=== PATIENT | male | born 1955 | race Caucasian/White ===

== ENCOUNTER 2020-06-12 06:11 | Inpatient (IN) | payer BC ==
[2020-06-12 06:53] LABS: #Eosinphils 0.1 thou/uL (0.0-0.7); #Lymphocytes 0.4 thou/uL (1.20-3.40); #Monocytes 0.8 thou/uL (0.11-0.59); #Neutrophils 8.6 thou/uL (1.40-6.50); %Basophils 0.1 % (0.0-1.0); %Eosinophils 0.5 % (0.0-10.0); %Monocytes 8.2 % (0.0-10.0); %Neutrophils 87.2 % (42.0-75.0); Hemoglobin 12.5 g/dL (14.0-18.0); Mean Platelet Volume 6.7 fL (7.4-10.4); Platelet Count 195 thou/uL (130-400); RBC Distribution Width 14.3 % (11.5-14.5); Red Blood Cell (RBC) Count 3.58 mill/uL (4.70-6.10); White Blood Cell (WBC) Count 9.9 thou/uL (4.8-10.8)
[2020-06-12 07:16] LABS: ALT (SGPT) 29 U/L (8-55); AST (SGOT) 16 U/L (5-34); Albumin 3.5 g/dL (3.4-4.8); Alkaline Phosphatase 62 U/L (40-110); Anion Gap 16 mmol/L (10-20); BUN (Urea Nitrogen) 21 mg/dL (8.4-25.7); Calc. Creatinine Clearance 0 mL/min (70-130); Calcium 8.7 mg/dL (7.8-10.44); Carbon Dioxide 21 mmol/L (23-31); Chloride 105 mmol/L (98-107); Estimated GFR-MDRD 84; Glucose 172 mg/dL (80-115); Potassium 3.6 mmol/L (3.5-5.1); Protein, Total 5.5 g/dL (5.8-8.1); Sodium 138 mmol/L (136-145)
--- NOTE | 2020-06-12 08:04 | CT ---
Head CT without contrast: 06/12/2020 COMPARISON: None HISTORY: Altered mental status, confusion TECHNIQUE: Axial CT imaging at 5 mm intervals from vertex through skull base without contrast FINDINGS: There is evidence of prior posterior left craniotomy. There is enlargement of the left late ral ventricle with encephalomalacia in the posterior left parietal region as well as hypodensity in the left basal ganglia and left cerebral peduncle suggesting prior insult/infarction with left-sided well-aerated degeneration. There is subtle hypodensity within the posterior aspect of the right cerebellar hemisphere suggesting age indeterminant ischemia. No intracranial hemorrhage, midline shif t, or mass effect. Imaged paranasal sinuses and mastoid air cells are well-aerated. No displaced calvarial fracture. IMPRESSION: Nonacute findings as described above. No intracranial hemorrhage. If there is clinical co ncern for acute infarction, follow-up brain MRI is suggested.
--- NOTE | 2020-06-12 08:10 | CT ---
CT of the abdomen and pelvis: 06/12/2020 COMPARISON: None HISTORY: Sepsis activation, altered mental status, hemoptysis TECHNIQUE: Axial CT imaging at 5 mm intervals from lung bases through pubic symphysis with IV contras t. Coronal and sagittal reformatted imaging obtained. FINDINGS: Increased linear density noted in the lung bases suggesting scar and/or volume loss, right greater than left. No free intraperitoneal air or fluid is seen. Liver, gallbladder, spleen, pancreas, and adrenal glands are unremarkable. There is an IVC filter pre sent. The right kidney is unremarkable. There is hydronephrosis and hydroureter on the left secondary to a distal obstructing stone within the left ureter at the left ureterovesicular junction measuring approximately 4 mm. Mild nonspecific straightening of the presacral fat is noted which may signify inflammatory change. N o discrete rectal wall thickening. Small volume stool is noted within the rectum. Evaluation of the bowel is limited without oral contrast media and demonstrates no evidence for focal bowel inflammator y change or bowel obstruction. The appendix appears unremarkable. There is atherosclerotic calcification of the infrarenal abdominal aorta. No abdominal or pelvic lymp hadenopathy is seen. Review of the osseous structures demonstrates numerous age indeterminant spinal fractures which inclu jose luis the superior endplates of the T9, T11, T12, L1, L2, L3, L4 4, and L5 vertebral bodies. There are vacuum discs at the T12-L1, L1-2, L3-4, L4-5, and L5-S1 levels. The bones are demineralized, limi ting detailed assessment for fracture. IMPRESSION: Obstructive uropathy on the left secondary to a 4 mm distal obstructing stone within the left ureter at the left ureterovesicular junction. Numerous age indeterminant mild endplate fractures of the imaged spine.
[2020-06-12 08:24] LABS: Bacteria/HPF 3+ HPF (None Seen); Bilirubin Negative (Negative); Blood, Urine 2+ (Negative); Clarity Turbid (Clear); Glucose, Urine (Dipstick) Normal (Negative); Ketone, Urine Negative (Negative); Leukocyte 500 Leu/uL (Negative); Nitrite 2+ (Negative); Protein, Urine (Dipstick) 30 mg/dL (Neg-Trace); RBC/HPF 21-50 HPF (0-3); Specific Gravity, Urine 1.016 (1.002-1.036); Squamous Epithelial None Seen HPF (0-3); Urobilinogen Normal mg/dL (Less than 2); WBC/HPF Greater than 50 HPF (0-3); pH, Urine 5.5 (5.0-9.0)
[2020-06-12] MEDS ORDERED: Cefepime 2 GM VIAL ONE (08:44)
[2020-06-12] MEDS ORDERED: Metoclopramide HCl 10 MG/2 ML VIAL ONE (08:44)
[2020-06-12] MEDS ORDERED: Acetaminophen 325 MG TAB PO PRN (09:16)
[2020-06-12] MEDS ORDERED: Bisacodyl 10 MG SUPP PR SCH (09:16)
[2020-06-12] MEDS ORDERED: predniSONE 20 MG TAB PO SCH (09:16)
[2020-06-12] MEDS ORDERED: Guaifenesin DM 100-10/5 ML UDCUP PO PRN (09:16)
[2020-06-12] MEDS ORDERED: Ondansetron PF 4 MG/2 ML Vial IVP PRN (09:16)
[2020-06-12] MEDS ORDERED: Iopamidol-370 76% 500 ML 1 ML ONE (09:20)
[2020-06-12 09:42] LABS: Lactic Acid 2.5 mmol/L (0.5-2.2)
--- NOTE | 2020-06-12 10:01 | RAD ---
PORTABLE CHEST 1 VIEW: Date: 06/12/2020 Time: 0627 hours HISTORY: Difficulty breathing, altered mental status. FINDINGS/IMPRESSION: The heart size is normal. No lobar consolidation, pneumothoraces, or large effusions are seen. There is suggestion of a small right pleural effusion with adjacent mild atelectatic changes. POS: MZA
--- NOTE | 2020-06-12 10:02 | HP ---
REASON FOR ADMISSION: Sepsis, urinary tract infection, left 4 mm obstructing ureteral stone, acute encephalopathy, possible seizure. HISTORY OF PRESENTING ILLNESS: Please note majority of this history is obtained by talking to the patient's at bedside and ER physician, Dr. Greer, as the patient is aphasic. The patient apparently was rolling [id number] yesterday. He appeared very uncomfortable. Initially the thought, it was constipation since his last bowel movement was Sunday. This morning around 5:00, the patient developed temperature of 100 degrees. He had loud, raspy breathing, and he also had blood around the lips. The thought he bit his lips, but his shortness of breath got worse and he was not conscious. He was not making any eye contact. summoned EMS and the patient was brought here. She says now he is awake, says a few words, and is kind of 90% better at present now. No exposure to COVID as such per . The patient has had history of absent seizure diagnosed in April,. 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 Cook. The patient has had prior history of nephrolithiasis in 1992 and passed stone in [facility]. He has not seen urologist. PAST MEDICAL AND SURGICAL HISTORY: History of large left MCA stroke with prior surgery for the same and right hemiplegia with aphasia, hypertension, vasectomy, cyst removal, right lower extremity DVT with initial placement of a temporary filter in July, which has not been removed, and since then, he has been on Eliquis 5 mg twice daily. The patient was on cyclophosphamide for vasculitis and was closely monitored by Dr. Cook. He has been off this from May 15. The patient is coming down on his prednisone from 100 mg to current dose of 20 mg daily. The plan is to place him on methotrexate with a followup appointment being scheduled on the 16 of June. Multiple compression fractures in the spine, B12 deficiency, prior history of nephrolithiasis in 1992, craniotomy for massive CVA in June of 2019, GERD, osteoporosis, IVC filter placed in July of 2019. CURRENT MEDICATIONS: 1. Gabapentin 300 mg daily. 2. Lisinopril 5 mg daily. 3. Prednisone 20 mg daily. 4. Protonix 30 mg daily. 5. Eliquis 5 mg twice daily for right lower extremity DVT. 6. Vitamin D3 of 5000 units p.o. daily. 7. B12 of 1000 mcg daily. 8. Calcium citrate daily. 9. Vitamin C with zinc daily. ALLERGIES: NO KNOWN DRUG ALLERGIES. PERSONAL HISTORY: Does not abuse alcohol or drugs. No history of smoking. The patient is wheelchair bound and does assist with transfers. No history of dysphagia per . FAMILY HISTORY: Mother of massive CVA in her late 60s. Father of throat cancer in his 70s. He was a smoker as well. CODE STATUS: Full. Power of regulatory attorney is his . REVIEW OF SYSTEMS: Cannot be accurately obtained as the patient is aphasic and is confused at present. PHYSICAL EXAMINATION: GENERAL: The patient is a 65-year-old male, who is currently not in any acute distress. VITAL SIGNS: Blood pressure 104/76, pulse 126 per minute, respiratory rate 20 per minute, temperature 99.1 degrees here and was 100 degrees when EMS arrived to see him, saturating 94% on room air. NECK: Supple. No elevated JVD. HEENT: Eyes; extraocular muscles are intact. Pupils reacting to light. Oral cavity, mucous membranes are dry. No exudates or congestion. CARDIOVASCULAR: S1 and S2 heard, regular rhythm. RESPIRATORY: Air entry 1+ bilateral. Scattered rhonchi plus no rales or wheezes. ABDOMEN: Soft. Bowel sounds heard. No tenderness, rigidity, or guarding. EXTREMITIES: Right lower extremity is twice as big as left lower extremity. mentions that it was even bigger than this. Peripheral pulses are 1+ bilateral. No ischemic ulcers or gangrene. CENTRAL NERVOUS SYSTEM: The patient has right hemiplegia with aphasia. No new focal deficits noted. PSYCHIATRIC: Cannot be accurately assessed as the patient is aphasic and is confused. IMAGING STUDIES: CT abdomen and pelvis with contrast done, shows obstructive uropathy on the left secondary to 4 mm distal obstructing stone within the left ureter at the left ureteral vesicular junction. Numerous age indeterminate endplate fractures of T9, T11, T12, L1, L2, L3, L4, and L5 vertebral bodies. CT brain shows prior left craniotomy. No acute findings seen. Chest x-ray, official report is pending. LABORATORY DATA: White count of 9, hemoglobin and hematocrit 12 and 36, platelet count 195, MCV 103 with 87% neutrophils. Serum bicarb 21, BUN 21, creatinine 0.9, serum glucose 172. Lactic acid 3.3. Liver enzymes within normal limits. Albumin 3.5. UA shows 2+ nitrite, 500 leukocyte esterase, greater than 50 wbc's, amorphous crystals. Urine bacteria 3+. CLINICAL IMPRESSION AND PLAN: The patient will be admitted to medical floor for sepsis, urinary tract infection, likely obstructive uropathy on the left with a 4 mm stone likely might pass. We will strain all urine. He also has moderate dehydration. Bhatia cultures have been obtained in the ER. We will place him on ceftriaxone and vancomycin. He will be on normal saline at 100 mL per hour. We will continue his prednisone, which he has been chronically taking for vasculitis leading up to massive CVA and follows closely with Dr. Cook on the outside. We will continue his Synthroid, gabapentin, and morphine p.r.n. for pain. We will also obtain an EEG in view of his confusion episode with blood around his lips and prior history of massive CVA. We will consult Dr. Velez for Urology and Dr. Ortega for Neurology. We will keep him n.p.o. The patient's last dose of Eliquis was yesterday evening. Eliquis will be held for possible cystoscopy and procedures if needed. We will continue to closely monitor him on medical floor. Job ID: [id number]
[2020-06-12] MEDS ORDERED: predniSONE 20 MG TAB ONE (11:33)
[2020-06-12] MEDS ORDERED: Vancomycin 1 GM/200 ML BAG ONE (11:33)
[2020-06-12] MEDS ORDERED: cefTRIAXone\\ROCEPHIN 2 GM VIAL ONE (11:33)
[2020-06-12 11:39] LABS: INR-International Normal Ratio 1.1; PTT 35.7 sec (22.9-36.1); Prothrombin Time 14.4 sec (12.0-14.7)
[2020-06-12 12:21] LABS: SARS-CoV-2 NAA Rapid Test Not Detected (NotDetected)
[2020-06-12] MEDS: Sodium Chloride 0.9% 1,000 ML IV SCH ×2 (12:34→19:53)
[2020-06-12] MEDS: cefTRIAXone\\ROCEPHIN 2 GM in Sodium Chloride 0.9% 100 ML IVPB SCH (12:35)
[2020-06-12] MEDS ORDERED: Lidocaine 1% PF 5 ML VIAL ONE (12:40)
[2020-06-12] MEDS ORDERED: PROPOFOL 200 MG/20 ML VIAL ONE (12:40)
[2020-06-12] MEDS: Vancomycin 1 GM in Premix Bag 1 BAG IVPB SCH ×2 (12:48→23:58)
--- NOTE | 2020-06-12 13:27 | CON ---
NEUROLOGY CONSULTATION DATE OF CONSULTATION: 06/12/2020 REASON FOR CONSULTATION: Altered mental status/possible seizure. HISTORY OF PRESENT ILLNESS: Mr. 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 Per the patient's who is at bedside, he has been complaining of severe abdominal pain on and off since the last few days and she gave him a few doses of tramadol this morning. He had difficulty breathing and blood around his lips. There was a concern about seizures. He was also found to have a temperature of 100 degree and shortness of breath. She decided to call 911 and bring him to the hospital for further evaluation. In the emergency room, he was found to have left 4 mm obstructing ureteral stone and UTI with sepsis and he was admitted for further evaluation. REVIEW OF SYSTEMS: Unobtainable due to the patient's expressive aphasia. PAST MEDICAL HISTORY: History of large left MCA stroke with residual right hemiplegia and aphasia, hypertension. GERD, osteoporosis, intravenous filter placed in July of 2019. 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 Gabapentin 300 mg daily. 2. Lisinopril 5 mg daily. 3. Prednisone 20 mg daily. 4. Protonix 30 mg daily. 5. Eliquis 5 mg twice daily for right lower extremity DVT. 6. Vitamin D3 5000 units p.o. daily. 7. Vitamin B12 1000 mg daily. 8. Calcium citrate daily. 9. Vitamin C with zinc daily. ALLERGIES: NO KNOWN DRUG ALLERGIES. SOCIAL HISTORY: The patient is wheelchair bound and does need assistance for transfers. No history of dysphagia per . He denies smoking and illegal drug use. FAMILY HISTORY: Significant for CVA and throat cancer. PHYSICAL EXAMINATION: GENERAL: Alert, awake male, in mild distress. VITAL SIGNS: Blood pressure 104/76, pulse 126, respiratory rate 20. CVS: Regular rate and rhythm. CHEST: Clear. ABDOMEN: Soft. NECK: Supple. NEUROLOGICAL: Mental status, the patient is alert, awake, and per is 85% back to baseline. He does have expressive aphasia. Motor muscle tone is increased in the right and he has right hemiplegia. Sensory decreased on the right. Cerebellar, unable to perform secondary to weakness on the right. Gait deferred due to patient's safety reason. DATA REVIEWED: CT of the abdomen and pelvis with contrast showed obstructive uropathy on the left secondary to 4 mm distal obstructive stone with the left ureter and left ureterovesical junction. CT of the brain showed prior left craniotomy. Chest x-ray is unremarkable. Urinalysis is positive for urinary tract infection. ASSESSMENT AND PLAN: Mr. Dmitriy Crouch is a 65-year-old male, who has been admitted because of sepsis due to ureteral stone and also dehydration and an episode of altered mental status. Altered mental status seems to be multifactorial secondary to metabolic etiology and also secondary to pain medications since that he has received multiple doses of tramadol for pain. Tramadol does decrease seizure threshold. The patient does have underlying history of seizure disorder and medicine has been tapered off by their primary physician because of does not want to affect the quality of life. Most likely a provoked seizure in the setting of infection and excruciating pain due to stone. Observe seizure precautions. Ativan 2 mg IV for seizure greater than 2 minutes. Consider increasing gabapentin to 200 mg p.o. b.i.d., the anticonvulsant dose to provide adequate seizure prophylaxis during this acute issues. Continue medical management per primary team and Urology. Consider MRI of the brain to rule out acute process. We will continue to follow. EEG on sunday to rule out cortical irritability. Neuro checks every 4 hours. DVT prophylaxis with SCD. We will continue to follow. Plan discussed with the patient, patient's at bedside and also with the primary attending Dr. Louise. Thank you for the consult. Job ID: [id number] [facility]
[2020-06-12 13:56] VITALS: BMI 29.6
--- NOTE | 2020-06-12 16:41 | CON ---
DATE OF CONSULTATION: 06/12/2020 REASON FOR CONSULTATION: Left ureteral stone, urinary tract infection. HISTORY OF PRESENT ILLNESS: Mr. Crouch is a 65-year-old male, who is seen in consultation for the above. He has a complicated past history of right hemiplegia with aphasia secondary to a large left MCA stroke. The patient's provides the history as the patient is unable to do so. Over the past couple of days, the patient has not been acting himself. He has had some degree of altered mental status. Initially, she felt that this was secondary to constipation. This morning, the patient had a temperature of just over 100 degrees Fahrenheit and had a loud labored, raspy breathing. The evaluated the patient at that time and she was not able to wake him. He was not making an eye contact. At that time, she called EMS and the patient was brought to the emergency department. The patient underwent a CT of the abdomen and pelvis in the emergency department, which demonstrated a left-sided 4 mm distal left ureteral stone with left hydroureteronephrosis. The patient had a urinalysis consistent with UTI with positive leukocyte esterase, positive bacteria and positive nitrite. The patient was having low-grade fever, but evidently at one point per EMS had a fever of up to 103. He has been tachycardic. Urology was consulted for further evaluation. Since the patient was admitted, started on ceftriaxone and vancomycin and given fluids. He has improved somewhat. He continues to have fever, but his mental status has improved. No other complaints. REVIEW OF SYSTEMS: Unable to obtain secondary to patient's condition. PAST MEDICAL HISTORY: History of large left MCA stroke with right hemiplegia and aphasia, hypertension, right lower extremity DVT with placement of a temporary IVC filter in July, which has not been removed. Currently on Eliquis. 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 PAST SURGICAL HISTORY: Surgery for a large MCA stroke, IVC filter placement, vasectomy, cyst removal. CURRENT MEDICATIONS: 1. Gabapentin. 2. Lisinopril. 3. Prednisone. 4. Protonix. 5. Eliquis. 6. Vitamin D3. 7. B12. 8. Cyclophosphamide. 9. Calcium citrate. 10. Vitamin C. ALLERGIES: NO KNOWN DRUG ALLERGIES. FAMILY HISTORY: Noncontributory. SOCIAL HISTORY: No alcohol or tobacco. The patient is wheelchair-bound and does assist with some transfers. PHYSICAL EXAMINATION: VITAL SIGNS: Temperature is 100.8, pulse 119, respirations 18, ox saturation 96% on room air, blood pressure 113/64. GENERAL: He is awake and alert, in no acute distress. HEENT: Normocephalic and atraumatic. NECK: Supple. No masses or lymphadenopathy. CARDIOVASCULAR: Tachycardic but regular. PULMONARY: Breathing unlabored. ABDOMEN: Soft, nontender/nondistended. No masses or organomegaly. No suprapubic tenderness to palpation. No CVA tenderness. EXTREMITIES: Warm, well perfused. No edema. NEUROLOGIC: Right hemiplegia. LABORATORY DATA: White blood cell count 9.9, hemoglobin 12.5, hematocrit 36.8, platelets 195. Sodium 138, potassium 3.6, chloride 105, bicarb 21, BUN 21, and creatinine 0.91, lactate 3.3. Recheck after fluid at 3.5. Urinalysis 2+ blood, 2+ nitrite, 500 leukocyte esterase, 21 to 50 red blood cells per high-power field, greater than 50 white blood cells per high-power field, 3+ bacteria. RADIOLOGY DATA: CT of the abdomen and pelvis performed on 06/12/2020 demonstrates a 4 mm distal ureteral stone with left hydroureteronephrosis. ASSESSMENT: A 65-year-old male with multiple chronic medical problems, now with urinary tract infection, sepsis secondary to urinary tract infection, left ureteral stone, left hydroureteronephrosis. PLAN: I reviewed the natural history and clinical implications of ureterolithiasis in the setting of urinary tract infection with the patient and his in detail. I explained that given the fact that he is febrile, tachycardic and has an obstructing stone in the setting of UTI. Would recommend urgent decompression of his left renal collecting system. I discussed options for this after indications/risks/benefits/alternatives/possible outcomes were discussed with the patient in detail. The patient and his in detail, they elect to proceed with left ureteral stent placement, possible left ureteroscopy with stone extraction given the very distal location of the stone. I explained that if we were unable to remove the stone, the patient may require staged definitive management of the stone in the future as a second procedure. He will need to remain on a course of culture specific antibiotics for approximately two weeks. The patient is n.p.o., a rapid COVID test has been performed and is negative. This will be performed later today. Job ID: [id number]
[2020-06-12] MEDS ORDERED: Fentanyl 100 MCG/2 ML VIAL ONE (17:00)
[2020-06-12] MEDS ORDERED: Iothalamate Meglumine 60% 50 ML VIAL FS ONE (17:33)
--- NOTE | 2020-06-12 18:52 | OP ---
DATE OF PROCEDURE: 06/12/2020 RELATIONSHIP ADVISOR: None. PREPROCEDURE DIAGNOSES: 1. Left ureteral calculus. 2. Left hydroureteronephrosis. 3. Sepsis secondary to urinary tract infection. POSTPROCEDURE DIAGNOSES: 1. Left ureteral calculus. 2. Left hydroureteronephrosis. 3. Sepsis secondary to urinary tract infection. PROCEDURES PERFORMED: 1. Left ureteroscopy with basket extraction of left ureteral calculus. 2. Left ureteral stent placement, 6-English x 26 cm. ANESTHESIA: LMA anesthesia. COMPLICATIONS: None. FLUID: See Anesthesia record. BLOOD LOSS: Minimal. SPECIMENS: Left ureteral calculus. POSTPROCEDURE STATUS: Satisfactory. INDICATIONS FOR PROCEDURE: Mr. Crouch is a 65-year-old male who presented with sepsis secondary to urinary tract infection and a 4 mm distal left ureteral stone with left hydroureteronephrosis. After indications/risks/benefits/alternatives/possible outcomes were discussed with the patient and his in detail, they elected to proceed with left ureteral stent placement, possible left ureteroscopy with basket extraction, and all indicated procedures. DESCRIPTION OF PROCEDURE: The patient was taken to the operating room, and after successful induction of general LMA anesthesia, the patient was placed in dorsal lithotomy position. His genitalia were prepped and draped in usual sterile fashion. A time-out was performed following which, a 22-English rigid cystoscope inserted into the patient's urethra and advanced into the bladder. Cystoscopy was performed and was unremarkable. There was bilobar enlargement of the prostate. Left ureteral orifice was identified. It was cannulated with a 0.035 inch zip wire which was advanced up to the level of the left renal pelvis under fluoroscopic guidance. The cystoscope was removed. The semi-rigid ureteroscope was advanced into the bladder using a PTFE wire to guide into the ureteral orifice. We advanced it into the left ureteral orifice and immediately encountered the stone in the distal ureter. We used minimal irrigation and no significant pressurized irrigation. In doing this, we used a ZeroTip Nitinol basket to extract the stone. It broke up into two pieces as we were doing so. Both of these pieces were successfully removed and sent for stone analysis. We put approximately 3 mL of a 50:50 mix of Isovue contrast and saline in the left renal pelvis through the scope and withdrew the ureteroscope. There was no damage to the ureter. We elected to leave a ureteral stent given the fact that he had hydronephrosis and urinary tract infection. Over the wire, we backloaded the cystoscope. We then placed a 6-English x 26 cm double-J ureteral stent, and upon wire removal, a good curl was achieved proximally within the left renal pelvis and distally within the bladder. The patient's bladder was drained. He tolerated the procedure well, was awoken from anesthesia, and transferred to the PACU in satisfactory condition. Job ID: [id number]
[2020-06-12] MEDS: Famotidine 20 MG TAB PO SCH (19:52)
[2020-06-12] MEDS: Senokot S 8.6-50 MG TAB PO SCH (19:52)
[2020-06-12] MEDS ORDERED: Vancomycin HCl 1 GM in Sodium Chloride 0.9% 250 ML 300 ML IVPB SCH (21:00)
[2020-06-12] MEDS: Morphine 2 MG/ML VIAL SLOW IVP PRN (21:09)
[2020-06-13] MEDS: Morphine 2 MG/ML VIAL SLOW IVP PRN (03:07)
[2020-06-13 07:53] LABS: Hemoglobin 11.7 g/dL (14.0-18.0); Mean Corpuscular HGB CONC 34.2 g/dL (32.0-36.0); Mean Platelet Volume 6.6 fL (7.4-10.4); Platelet Count 154 thou/uL (130-400); RBC Distribution Width 14.2 % (11.5-14.5); Red Blood Cell (RBC) Count 3.34 mill/uL (4.70-6.10); White Blood Cell (WBC) Count 6.9 thou/uL (4.8-10.8)
[2020-06-13] MEDS ORDERED: predniSONE 20 MG TAB PO SCH (08:00)
[2020-06-13 08:05] LABS: Anion Gap 14 mmol/L (10-20); BUN (Urea Nitrogen) 13 mg/dL (8.4-25.7); Calc. Creatinine Clearance 139 mL/min (70-130); Calcium 8.6 mg/dL (7.8-10.44); Carbon Dioxide 22 mmol/L (23-31); Chloride 106 mmol/L (98-107); Estimated GFR-MDRD Greater than 90; Glucose 106 mg/dL (80-115); Potassium 3.5 mmol/L (3.5-5.1); Sodium 138 mmol/L (136-145)
[2020-06-13] MEDS: Gabapentin 300 MG CAP PO SCH (08:20)
[2020-06-13] MEDS: Famotidine 20 MG TAB PO SCH ×2 (08:21→21:13)
[2020-06-13] MEDS: Senokot S 8.6-50 MG TAB PO SCH ×2 (08:21→21:13)
[2020-06-13] MEDS: Levothyroxine Sodium 75 MCG TAB PO SCH (08:21)
[2020-06-13 08:30] LABS: MDiff Complete? YES; Monocytes 10 % (0-10); Neutrophil 90 % (42-75); Platelet Morphology Comment Appears Adequate
[2020-06-13] MEDS: Sodium Chloride 0.9% 1,000 ML IV SCH ×2 (08:30→18:33)
[2020-06-13] MEDS: cefTRIAXone\\ROCEPHIN 2 GM in Sodium Chloride 0.9% 100 ML IVPB SCH (10:18)
--- NOTE | 2020-06-13 10:56 | MRI ---
MRI BRAIN WITHOUT CONTRAST: Date: 06/13/2020 HISTORY: Seizure. FINDINGS: Correlation is made with CT scan from previous day and comparison made with MRI of 05/03/2020. There are changes of cortical atrophy and chronic small vessel ischemic disease. There are postop ena nges of posterior craniotomy, encephalomalacia in the posterior left parietal region, and stable enla rgement of the left lateral ventricle. Old infarctions in the left basal ganglia and left cerebral pe duncle are again seen. Old infarctions in the cerebellar hemisphere are again noted. There are new fo ci of restricted diffusion in the left basal ganglia. No midline shift or abnormal extra-axial fluid collections are seen. IMPRESSION: Small acute lacunar infarctions in the left basal ganglia. POS: ALCIRAA
[2020-06-13] MEDS: Vancomycin 1 GM in Premix Bag 1 BAG IVPB SCH (11:16)
--- NOTE | 2020-06-13 12:35 | ULT ---
EXAM: Carotid ultrasound HISTORY: Stroke/TIA COMPARISON: None TECHNIQUE: Multiplanar grayscale and color Doppler images were obtained in a carotid ultrasound. Spec tral analysis of the Doppler waveforms were performed. FINDINGS: There is limited visualization of the right carotid artery. No significant plaque is visualized in either internal carotid artery. No significant plaque is seen in either common carotid artery. The Doppler waveforms are normal in the visualized vessels. Peak systolic velocity in the right internal carotid artery 56 cm/s. Peak systolic velocity in the right common carotid artery 41 cm/s. The right ICA/CCA ratio is 1.4. Peak systolic velocity in the left internal carotid artery 62 cm/s. Peak systolic velocity in the left common carotid artery 51 cm/s. The left ICA/CCA ratio is 1.2. The left vertebral artery demonstrates antegrade flow without focal stenosis. The right vertebral art brian was not visualized. IMPRESSION: No evidence of hemodynamically significant stenosis.
--- NOTE | 2020-06-13 13:43 | PDOC.NEUPN ---
- Subjective Encounter Date: 06/13/20 Subjective: Patient is awake today and more responsive. He does have recent expressive aphasia from the prior stroke. MRI the brain reviewed which was positive for acute lacunar infarction in the left basal ganglia. No new deficits seen on exam. Patient feels much better in terms of pain after the cystoscopy for ureteral stone. - Objective Vital Signs & Weight: Vital Signs (12 hours) Temp Pulse Resp BP Pulse Ox 06/13/20 12:06 99.0 F 101 H 18 146/86 H 97 06/13/20 08:18 99.0 F 109 H 18 139/93 H 96 06/13/20 03:56 98.1 F 106 H 18 131/75 95 Weight Weight 206 lb 9.6 oz I&O: 06/12/20 06/13/20 06/14/20 06:59 06:59 06:59 Intake Total 2039 Balance 2039 Result Diagrams: 06/13/20 07:19 06/13/20 07:19 Radiology Reviewed by me: Yes EKG Reviewed by me: Yes ROS - Review of Systems ROS unobtainable: due to mental status (Expressive aphasia) - Medication Medications: Active Medications Generic Name Dose Route Start Last Admin Trade Name Freq PRN Reason Stop Dose Admin Acetaminophen 650 mg 06/12/20 09:16 06/13/20 00:18 Acetaminophen 325 Mg Tab PO 650 mg Q4H PRN Administration Headache/Fever/Mild Pain (1-3) Famotidine 20 mg 06/12/20 21:00 06/13/20 08:21 Famotidine 20 Mg Tab PO 20 mg BID ALICE Administration Gabapentin 300 mg 06/13/20 09:00 06/13/20 08:20 Gabapentin 300 Mg Cap PO 300 mg DAILY ALICE Administration Sodium Chloride 1,000 mls @ 100 mls/hr 06/12/20 09:16 06/13/20 08:30 Normal Saline 0.9% IV Not Given .Q10H ALICE Ceftriaxone Sodium 2 gm/ 100 mls @ 200 mls/hr 06/12/20 10:00 06/13/20 10:18 Sodium Chloride IVPB 100 mls Q24HR ALICE Administration Vancomycin HCl 1 gm/ Device 200 mls @ 200 mls/hr 06/12/20 11:00 06/13/20 11:16 IVPB 200 mls Q12H ALICE Administration Levothyroxine Sodium 75 mcg 06/13/20 09:00 06/13/20 08:21 Levothyroxine Sodium 75 Mcg Tab PO 75 mcg DAILY ALICE Administration Morphine Sulfate 2 mg 06/12/20 09:16 06/13/20 03:07 Morphine 2 Mg/Ml Vial SLOW IVP 2 mg Q4H PRN Administration Pain Prednisone 20 mg 06/13/20 08:00 06/13/20 08:20 Prednisone 20 Mg Tab PO 20 mg QAM-WM ALICE Administration Senna/Docusate Sodium 2 tab 06/12/20 21:00 06/13/20 08:21 Senokot S 8.6-50 Mg Tab PO 2 tab BID ALICE Administration Sodium Chloride 10 ml 06/12/20 21:00 06/13/20 09:23 Flush - Normal Saline 10 Ml Syringe IVF Not Given Q12HR ALCIE - Exam General Appearance: awake alert Eye: PERRL ENT: normocephalic atraumatic Neck: supple Respiratory: CTAB Cardiovascular: RRR Gastrointestinal: soft Extremities: no cyanosis Skin: normal turgor Neurological: no new deficit, facial droop, hemiplegia, speech deficit Neurological - other findings: Right sided deficits Musculoskeletal: no muscle wasting Musculoskeletal - other findings: Muscle tone increased on the right PSYCH: not oriented (Aphasic) Results - Labs Result Diagrams: 06/13/20 07:19 06/13/20 07:19 Lab results: WBC 6.9 thou/uL (4.8-10.8) 06/13/20 07:19 Hgb 11.7 g/dL (14.0-18.0) L 06/13/20 07:19 Hct 34.1 % (42.0-52.0) L 06/13/20 07:19 MCV 102.0 fL (78.0-98.0) H 06/13/20 07:19 Plt Count 154 thou/uL (130-400) 06/13/20 07:19 Neutrophils % 87.2 % (42.0-75.0) H 06/12/20 06:15 Sodium 138 mmol/L (136-145) 06/13/20 07:19 Potassium 3.5 mmol/L (3.5-5.1) 06/13/20 07:19 Chloride 106 mmol/L (98-107) 06/13/20 07:19 Carbon Dioxide 22 mmol/L (23-31) L 06/13/20 07:19 BUN 13 mg/dL (8.4-25.7) 06/13/20 07:19 Creatinine 0.71 mg/dL (0.7-1.3) 06/13/20 07:19 Glucose 106 mg/dL (80-115) 06/13/20 07:19 Lactic Acid 2.5 mmol/L (0.5-2.2) H 06/12/20 09:18 Calcium 8.6 mg/dL (7.8-10.44) 06/13/20 07:19 Total Bilirubin 1.0 mg/dL (0.2-1.2) 06/12/20 06:15 AST 16 U/L (5-34) 06/12/20 06:15 ALT 29 U/L (8-55) 06/12/20 06:15 Alkaline Phosphatase 62 U/L (40-110) 06/12/20 06:15 Serum Total Protein 5.5 g/dL (5.8-8.1) L 06/12/20 06:15 Albumin 3.5 g/dL (3.4-4.8) 06/12/20 06:15 Urine Ketones Negative mg/dL (Negative) 06/12/20 06:56 Urine Blood 2+ (Negative) A 06/12/20 06:56 Urine Nitrite 2+ (Negative) A 06/12/20 06:56 Ur Leukocyte Esterase 500 Brooks/uL (Negative) A 06/12/20 06:56 Urine RBC 21-50 HPF (0-3) A 06/12/20 06:56 Urine WBC Greater than 50 HPF (0-3) A 06/12/20 06:56 Ur Squamous Epith Cells None Seen HPF (0-3) 06/12/20 06:56 Urine Bacteria 3+ HPF (None Seen) A 06/12/20 06:56 - Radiology Interpretation MRI - head Additional Comment: MRI of the brain reviewed which was consistent with acute infarction in the basal ganglia on the left PN A/P (1) Acute CVA (cerebrovascular accident) Code(s): I63.9 - CEREBRAL INFARCTION, UNSPECIFIED Status: Acute (2) AMS (altered mental status) Code(s): R41.82 - ALTERED MENTAL STATUS, UNSPECIFIED Status: Acute (3) Seizure Code(s): R56.9 - UNSPECIFIED CONVULSIONS Status: Acute (4) Ureteral stone Code(s): N20.1 - CALCULUS OF URETER Status: Acute (5) S/P cystoscopy Status: Acute - Plan Daily Plan: PT/OT, speech therapy, DVT proph w/SCDs Mr. 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 MRI of the brain reviewed which was consistent with acute lacunar infarction in the left basal ganglia. Patient more awake today and no neuro deficits are evident on exam. Transfer to stroke floor for further work-up. Carotid Dopplers, 2D echo ordered. Continue neurochecks every 4 hours. Telemetry to rule out arrhythmias. Check hemoglobin A1c, fasting lipid panel and TSH. Permissive control of blood pressure at this time. Strict control of blood glucose. Start aspirin and high intensity statin for secondary stroke prevention. Continue home medications. Restart Eliquis oral once neurology procedures are completed for ureteral stone. PT/OT/speech. EEG will be scheduled tomorrow to rule out underlying cortical irritability. Consider increasing the dose of gabapentin to 200 mg p.o. twice dailyanticonvulsant dose for seizure prophylaxis. not interested in starting a new med anticonvulsant for seizures because it affected the quality of life. Continue medical management per primary team and neurology. Plan discussed with the patient and also with the nursing staff and oncology unit and also on the stroke unit.
[2020-06-13] MEDS ORDERED: Gabapentin 300 MG CAP PO PRN (17:56)
[2020-06-13] MEDS ORDERED: traMADol HCl 50 MG TAB PO PRN (17:56)
[2020-06-13] MEDS ORDERED: Aspirin 81 mg Enteric Coated Tablet PO SCH (18:15)
--- NOTE | 2020-06-13 18:19 | PDOC.HOSPP ---
- Subjective Encounter Date: 06/13/20 Encounter Time: 18:00 Subjective: f/u for Klebsiella sepsis from UTI/ureteral stone s/p stent and stone extraction POD #1. Receiving Rocephin/Vancomycin currently. Apparently dx with small lacunar infarction of L basal ganglia as well. More alert and interactive per . - Objective Vital Signs & Weight: Vital Signs (12 hours) Temp Pulse Resp BP Pulse Ox 06/13/20 15:50 97.7 F 94 18 128/87 97 06/13/20 12:06 99.0 F 101 H 18 146/86 H 97 06/13/20 08:18 99.0 F 109 H 18 139/93 H 96 Weight Weight 206 lb 9.6 oz I&O: 06/12/20 06/13/20 06/14/20 06:59 06:59 06:59 Intake Total 2039 Balance 2039 Result Diagrams: 06/13/20 07:19 06/13/20 07:19 Additional Labs: Microbiology 06/12/20 07:15 Venous blood - Right Arm Blood Culture - Preliminary Gram Negative Stanley 06/12/20 06:56 Urine Straight Catheter Urine Culture - Preliminary Presumptive Kleb/Enterobacter 06/12/20 06:15 Venous blood - Left Arm Blood Culture - Preliminary Klebsiella pneumoniae Laboratory Tests 06/12/20 06/12/20 06/12/20 06:15 06:15 06:15 Hgb 12.5 L Neutrophils % 87.2 H Neutrophils % (Manual) Lactic Acid 3.3 H Magnesium 1.8 Procalcitonin SARS-CoV-2 Rap RNA(RT-PCR) 06/12/20 06/12/20 06/12/20 06:15 09:18 09:55 Hgb Neutrophils % Neutrophils % (Manual) Lactic Acid 2.5 H Magnesium Procalcitonin 0.77 SARS-CoV-2 Rap RNA(RT-PCR) Not Detected 06/13/20 07:19 Hgb Neutrophils % Neutrophils % (Manual) 90 H Lactic Acid Magnesium Procalcitonin SARS-CoV-2 Rap RNA(RT-PCR) Radiology Reviewed by me: Yes (MRI brain - lacunar infarct L basal ganglia) EKG Reviewed by me: Yes (Tele - SR) Hospitalist ROS - Medication Medications: Active Medications Generic Name Dose Route Start Last Admin Trade Name Freq PRN Reason Stop Dose Admin Acetaminophen 650 mg 06/12/20 09:16 06/13/20 00:18 Acetaminophen 325 Mg Tab PO 650 mg Q4H PRN Administration Headache/Fever/Mild Pain (1-3) Famotidine 20 mg 06/12/20 21:00 06/13/20 08:21 Famotidine 20 Mg Tab PO 20 mg BID ALICE Administration Gabapentin 300 mg 06/13/20 09:00 06/13/20 08:20 Gabapentin 300 Mg Cap PO 300 mg DAILY ALICE Administration Sodium Chloride 1,000 mls @ 100 mls/hr 06/12/20 09:16 06/13/20 08:30 Normal Saline 0.9% IV Not Given .Q10H ALICE Ceftriaxone Sodium 2 gm/ 100 mls @ 200 mls/hr 06/12/20 10:00 06/13/20 10:18 Sodium Chloride IVPB 100 mls Q24HR ALICE Administration Vancomycin HCl 1 gm/ Device 200 mls @ 200 mls/hr 06/12/20 11:00 06/13/20 11:16 IVPB 200 mls Q12H ALICE Administration Levothyroxine Sodium 75 mcg 06/13/20 09:00 06/13/20 08:21 Levothyroxine Sodium 75 Mcg Tab PO 75 mcg DAILY ALICE Administration Morphine Sulfate 2 mg 06/12/20 09:16 06/13/20 03:07 Morphine 2 Mg/Ml Vial SLOW IVP 2 mg Q4H PRN Administration Pain Senna/Docusate Sodium 2 tab 06/12/20 21:00 06/13/20 08:21 Senokot S 8.6-50 Mg Tab PO 2 tab BID ALICE Administration Sodium Chloride 10 ml 06/12/20 21:00 06/13/20 09:23 Flush - Normal Saline 10 Ml Syringe IVF Not Given Q12HR ALICE - Exam General Appearance: NAD, awake alert General - other findings: aphasic(chronic) Eye: PERRL, anicteric sclera ENT: normocephalic atraumatic ENT - other findings: apthous ulcer left anterior tongue Neck: supple, symmetric, no JVD, no thyromegaly, no lymphadenopathy Heart: RRR, no murmur, no gallops, no rubs, normal peripheral pulses Heart - other findings: S1, S2 Respiratory: CTAB, no wheezes, no rales, no ronchi, normal chest expansion, no tachypnea Gastrointestinal: soft, non-tender, non-distended, normal bowel sounds, no palpable masses Extremities: no cyanosis, no clubbing, no edema Skin: normal turgor Neurological: facial droop Neurological - other findings: chronic aphasia, R hemiplegia Musculoskeletal: normal tone, generalized weakness Psychiatric: oriented to person Hosp A/P (1) Klebsiella sepsis Code(s): A41.4 - SEPSIS DUE TO ANAEROBES Status: Acute Plan: Continue Rocephin/Vancomycin pending sensitivities, continue IVF's (2) UTI due to Klebsiella species Code(s): N39.0 - URINARY TRACT INFECTION, SITE NOT SPECIFIED; B96.89 - OTH BACTERIAL AGENTS THE CAUSE OF DISEASES CLASSD ELSWHR Status: Acute Plan: See #1 above (3) Acute CVA (cerebrovascular accident) Code(s): I63.9 - CEREBRAL INFARCTION, UNSPECIFIED Status: Acute Plan: small lacunar infarct of L basal ganglia, start ASA 81mg daily, resume home Eliquis (4) Acute metabolic encephalopathy Code(s): G93.41 - METABOLIC ENCEPHALOPATHY Status: Acute Plan: Likely multifactorial given sepsis and CVA, improved currently (5) Ureteral stone Code(s): N20.1 - CALCULUS OF URETER Status: Acute Plan: L distal ureterolithiasis s/p ureteral stent and stone extraction POD #1 (6) S/P cystoscopy Status: Acute - Plan plan discussed w/ family, continue antibiotics, PT/OT, social media job titles, speech therapy, DVT proph w/SCDs Stable currently Start ASA 81mg po daily Resume home Eliquis/Prednisone given hx of vasculitis PT/OT/[employer] Continue IV Rocephin/Vancomycin Await final Ucx/blood cx results AM lab: Lipid profile
[2020-06-13] MEDS ORDERED: Apixaban 5 MG TAB PO SCH (21:00)
[2020-06-13 22:32] LABS: Vancomycin, Trough 12.5 ug/mL
--- NOTE | 2020-06-13 22:44 | PRG ---
DATE OF SERVICE: 06/13/2020 SUBJECTIVE: Mr. Crouch overall is doing better. He has been afebrile. His tachycardia has improved. Minimal pain. No complaints. OBJECTIVE: VITAL SIGNS: Temperature 97.7, pulse 94, respirations 18, oxygen saturation 97% on room air, and blood pressure 128/87. GENERAL: He is awake and alert, no apparent distress. CARDIOVASCULAR: Regular rhythm. PULMONARY: Breathing unlabored. ABDOMEN: Soft, nontender/nondistended. EXTREMITIES: Warm, well perfused. No edema. LABORATORY DATA: White blood cell count 6.9, hemoglobin is 11.7, hematocrit 34.1, and platelets 154. Micro; blood cultures growing Klebsiella. Urine culture growing Klebsiella. Antibiotic susceptibility pending. ASSESSMENT: A 65-year-old male with sepsis secondary to urinary tract infection, left ureteral stone, postoperative day #1 status post left ureteroscopy with basket extraction of stone and left ureteral stent placement. Clinically, the patient seems to be improving. His urine and blood cultures are growing Klebsiella. Continue broad-spectrum antibiotics until he is clinically appropriate and narrow this. He will require a 2-week course of antibiotic therapy. His stent will likely be removed late during the antibiotic course. Followup will be scheduled for stent removal as an outpatient. Job ID: [id number]
[2020-06-14] MEDS: Vancomycin HCl 1.25 GM in Sodium Chloride 0.9% 250 ML 250 ML IVPB SCH ×2 (01:46→11:59)
[2020-06-14] MEDS: Sodium Chloride 0.9% 1,000 ML IV SCH ×2 (01:46→12:00)
[2020-06-14 06:07] LABS: Cardiac Risk 3.1 (Less than 4.5)
[2020-06-14 07:50] VITALS: BP 135/86; TEMP 98.6
[2020-06-14] MEDS ORDERED: predniSONE 20 MG TAB PO SCH (08:00)
[2020-06-14] MEDS: Famotidine 20 MG TAB PO SCH (08:17)
[2020-06-14] MEDS: Senokot S 8.6-50 MG TAB PO SCH (08:18)
[2020-06-14] MEDS: Levothyroxine Sodium 75 MCG TAB PO SCH (08:18)
[2020-06-14] MEDS: Gabapentin 300 MG CAP PO SCH (08:19)
[2020-06-14] MEDS ORDERED: Ascorbic Acid 500 mg Chewable Tablet PO SCH (09:00)
[2020-06-14] MEDS ORDERED: Lisinopril 5 MG TAB PO SCH (09:00)
[2020-06-14] MEDS ORDERED: Folic Acid 1 MG TAB PO SCH (09:00)
[2020-06-14] MEDS ORDERED: Cyanocobalamin (Vitamin B-12) 1,000 MCG TAB PO SCH (09:00)
[2020-06-14] MEDS ORDERED: Aspirin 81 mg Enteric Coated Tablet PO SCH (09:00)
[2020-06-14] MEDS: cefTRIAXone\\ROCEPHIN 2 GM in Sodium Chloride 0.9% 100 ML IVPB SCH (11:04)
--- NOTE | 2020-06-14 12:23 | PDOC.NEUPN ---
- Subjective Encounter Date: 06/14/20 Subjective: Patient is alert and awake and refused EEG testing. - Objective Vital Signs & Weight: Vital Signs (12 hours) Temp Pulse Resp BP Pulse Ox 06/14/20 07:43 98.6 F 90 20 135/86 98 06/14/20 03:56 98.7 F 102 H 16 113/70 98 Weight Weight 206 lb 9.6 oz I&O: 06/13/20 06/14/20 06/15/20 06:59 06:59 06:59 Intake Total 2039 Balance 2039 Result Diagrams: 06/13/20 07:19 06/13/20 07:19 Radiology Reviewed by me: Yes EKG Reviewed by me: Yes ROS - Review of Systems ROS unobtainable: due to mental status (Aphasia) - Medication Medications: Active Medications Generic Name Dose Route Start Last Admin Trade Name Freq PRN Reason Stop Dose Admin Acetaminophen 650 mg 06/12/20 09:16 06/13/20 00:18 Acetaminophen 325 Mg Tab PO 650 mg Q4H PRN Administration Headache/Fever/Mild Pain (1-3) Apixaban 5 mg 06/13/20 21:00 06/13/20 21:13 Apixaban 5 Mg Tab PO 5 mg HS ALICE Administration Ascorbic Acid 1,000 mg 06/14/20 09:00 06/14/20 08:17 Ascorbic Acid 500 Mg Chewable Tablet PO 1,000 mg DAILY ALICE Administration Aspirin 81 mg 06/14/20 09:00 06/14/20 08:17 Aspirin 81 Mg Enteric Coated Tablet PO 81 mg DAILY ALICE Administration Cyanocobalamin 1,000 mcg 06/14/20 09:00 06/14/20 08:18 Cyanocobalamin (Vitamin B-12) 1,000 Mcg Tab PO 1,000 mcg DAILY ALICE Administration Famotidine 20 mg 06/12/20 21:00 06/14/20 08:17 Famotidine 20 Mg Tab PO 20 mg BID ALICE Administration Folic Acid 1 mg 06/14/20 09:00 06/14/20 08:18 Folic Acid 1 Mg Tab PO 1 mg DAILY ALICE Administration Gabapentin 300 mg 06/13/20 09:00 06/14/20 08:19 Gabapentin 300 Mg Cap PO 300 mg DAILY ALICE Administration Sodium Chloride 1,000 mls @ 100 mls/hr 06/12/20 09:16 06/14/20 12:00 Normal Saline 0.9% IV 1,000 mls .Q10H ALICE Administration Ceftriaxone Sodium 2 gm/ 100 mls @ 200 mls/hr 06/12/20 10:00 06/14/20 11:04 Sodium Chloride IVPB 100 mls Q24HR ALICE Administration Vancomycin HCl 1.25 gm/ Sodium 250 mls @ 166.667 mls/hr 06/13/20 23:00 06/14/20 11:59 Chloride IVPB 250 mls 1100,2300 ALICE Administration Levothyroxine Sodium 75 mcg 06/13/20 09:00 06/14/20 08:18 Levothyroxine Sodium 75 Mcg Tab PO 75 mcg DAILY ALICE Administration Lisinopril 5 mg 06/14/20 09:00 06/14/20 08:18 Lisinopril 5 Mg Tab PO 5 mg DAILY ALICE Administration Morphine Sulfate 2 mg 06/12/20 09:16 06/13/20 03:07 Morphine 2 Mg/Ml Vial SLOW IVP 2 mg Q4H PRN Administration Pain Pantoprazole Sodium 40 mg 06/14/20 09:00 06/14/20 08:18 Pantoprazole 40 Mg Tab PO 40 mg DAILY ALICE Administration Prednisone 20 mg 06/14/20 08:00 06/14/20 08:17 Prednisone 20 Mg Tab PO 20 mg QAM-WM ALICE Administration Senna/Docusate Sodium 2 tab 06/12/20 21:00 06/14/20 08:18 Senokot S 8.6-50 Mg Tab PO 2 tab BID ALICE Administration Sodium Chloride 10 ml 06/12/20 21:00 06/14/20 08:19 Flush - Normal Saline 10 Ml Syringe IVF Not Given Q12HR ALICE Tramadol HCl 50 mg 06/13/20 17:56 06/14/20 11:49 Tramadol Hcl 50 Mg Tab PO 50 mg QID PRN Administration Pain 4-6 - Exam General Appearance: awake alert Eye: PERRL ENT: normocephalic atraumatic Neck: supple Respiratory: CTAB Cardiovascular: RRR Gastrointestinal: soft Extremities: no cyanosis Skin: normal turgor Neurological: no new deficit, facial droop, speech deficit Musculoskeletal: normal tone, no muscle wasting PSYCH: not oriented (Aphasic) Results - Labs Result Diagrams: 06/13/20 07:19 06/13/20 07:19 Lab results: WBC 6.9 thou/uL (4.8-10.8) 06/13/20 07:19 Hgb 11.7 g/dL (14.0-18.0) L 06/13/20 07:19 Hct 34.1 % (42.0-52.0) L 06/13/20 07:19 MCV 102.0 fL (78.0-98.0) H 06/13/20 07:19 Plt Count 154 thou/uL (130-400) 06/13/20 07:19 Neutrophils % 87.2 % (42.0-75.0) H 06/12/20 06:15 Sodium 138 mmol/L (136-145) 06/13/20 07:19 Potassium 3.5 mmol/L (3.5-5.1) 06/13/20 07:19 Chloride 106 mmol/L (98-107) 06/13/20 07:19 Carbon Dioxide 22 mmol/L (23-31) L 06/13/20 07:19 BUN 13 mg/dL (8.4-25.7) 06/13/20 07:19 Creatinine 0.71 mg/dL (0.7-1.3) 06/13/20 07:19 Glucose 106 mg/dL (80-115) 06/13/20 07:19 Lactic Acid 2.5 mmol/L (0.5-2.2) H 06/12/20 09:18 Calcium 8.6 mg/dL (7.8-10.44) 06/13/20 07:19 Total Bilirubin 1.0 mg/dL (0.2-1.2) 06/12/20 06:15 AST 16 U/L (5-34) 06/12/20 06:15 ALT 29 U/L (8-55) 06/12/20 06:15 Alkaline Phosphatase 62 U/L (40-110) 06/12/20 06:15 Serum Total Protein 5.5 g/dL (5.8-8.1) L 06/12/20 06:15 Albumin 3.5 g/dL (3.4-4.8) 06/12/20 06:15 Urine Ketones Negative mg/dL (Negative) 06/12/20 06:56 Urine Blood 2+ (Negative) A 06/12/20 06:56 Urine Nitrite 2+ (Negative) A 06/12/20 06:56 Ur Leukocyte Esterase 500 Brooks/uL (Negative) A 06/12/20 06:56 Urine RBC 21-50 HPF (0-3) A 06/12/20 06:56 Urine WBC Greater than 50 HPF (0-3) A 06/12/20 06:56 Ur Squamous Epith Cells None Seen HPF (0-3) 06/12/20 06:56 Urine Bacteria 3+ HPF (None Seen) A 06/12/20 06:56 - Radiology Interpretation MRI - head Additional Comment: MRI brain consistent with acute lacunar infarction in the left basal ganglia. PN A/P (1) Acute CVA (cerebrovascular accident) Code(s): I63.9 - CEREBRAL INFARCTION, UNSPECIFIED Status: Acute (2) AMS (altered mental status) Code(s): R41.82 - ALTERED MENTAL STATUS, UNSPECIFIED Status: Acute (3) Seizure Code(s): R56.9 - UNSPECIFIED CONVULSIONS Status: Acute (4) Ureteral stone Code(s): N20.1 - CALCULUS OF URETER Status: Acute (5) S/P cystoscopy Status: Acute (6) Acute CVA (cerebrovascular accident) Code(s): I63.9 - CEREBRAL INFARCTION, UNSPECIFIED Status: Acute (7) Acute metabolic encephalopathy Code(s): G93.41 - METABOLIC ENCEPHALOPATHY Status: Acute (8) Klebsiella sepsis Code(s): A41.4 - SEPSIS DUE TO ANAEROBES Status: Acute (9) UTI due to Klebsiella species Code(s): N39.0 - URINARY TRACT INFECTION, SITE NOT SPECIFIED; B96.89 - OTH BACTERIAL AGENTS THE CAUSE OF DISEASES CLASSD ELSWHR Status: Acute - Plan Daily Plan: continue antibiotics, PT/OT, speech therapy, DVT proph w/SCDs Mr. Crouch is a 65-year-old male with history significant for prior DVTs, stroke with residual right hemiplegia and expressive aphasia and ureteral stone status post cystoscopy with stent placement consulted for an episode of altered mental status with concern about seizure-like activity. MRI of the brain reviewed which was consistent with acute lacunar infarction in the left basal ganglia. Patient more awake today and no neuro deficits are evident on exam. Per , his expressive aphasia has worsened since the new event. Carotid Dopplers reviewed which was negative for hemodynamically significant stenosis. 2D echo showed ejection fraction of 55%. Continue neurochecks every 4 hours. Telemetry to rule out arrhythmias. Monitor blood pressure Strict control of blood glucose. Continue aspirin, Eliquis and high intensity statin for secondary stroke prevention. Continue home medications . PT/OT/speech. Patient refused EEG. Continue antibiotics for Klebsiella sepsis Consider increasing the dose of gabapentin to 200 mg p.o. twice dailyanticonvulsant dose for seizure prophylaxis. not interested in starting a new med anticonvulsant for seizures because it affected the quality of life. Continue medical management per primary team and neurology. Plan discussed with the primary attending Dr. Olvera.
--- NOTE | 2020-06-14 16:01 | PDOC.EEG ---
Neurology EEG Report - Report Report: This EEG was performed using 24 channel [employer] video digital EEG machine with 24 disc electrodes. This was an extended 2-hour 7 minutes of inpatient video EEG recording. Digital analysis of the EEG was done for Brody and seizure detection which revealed no abnormalities Background: The posterior background rhythm is 7-8 hz. Minimal reactivity seen with eye opening and closure. Hyperventilation: Not performed. Photic stimulation. Bioccipital symmetric response seen with photic stimulation. EEG diagnosis: Occasional irregular theta activity seen during the recording. Nonsustained posterior background rhythm. Clinical interpretation: This EEG is consistent with mild generalized nonspecific cerebral dysfunction.
--- NOTE | 2020-06-15 02:09 | DIS ---
DATE OF ADMISSION: 06/12/2020 DATE OF DISCHARGE: 06/14/2020 DISCHARGE DIAGNOSES: 1. Klebsiella sepsis from urinary tract infection. 2. Urinary tract infection due to Klebsiella species. 3. Acute lacunar infarct of the left basal ganglia. 4. Acute metabolic encephalopathy secondarily to #1, resolving. 5. Left distal ureterolithiasis, status post extraction with ureteral stent placement. 6. 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 CONSULTATIONS: 1. Dr. Ortega with Neurology Service. 2. Dr. Velez with Urology Service. PERTINENT LABORATORY AND X-RAY FINDINGS: Lactic acid level ranged between 2.5 to 3.3. Magnesium level 1.8. Albumin 3.5. Total cholesterol 175, triglycerides 131, HDL 57, LDL 92. Procalcitonin 0.77. CBC showed a hemoglobin ranging between 11.7 to 12.5. COVID-19 PCR not detected on 06/12/2020. Blood cultures 2/2 positive for Klebsiella pneumoniae species, sensitive to quinolones. Urine culture dated 06/12/2020 showed greater than 100,000 colonies of Klebsiella pneumoniae species. CT of the abdomen and pelvis dated 06/12/2020 showed obstructive uropathy of the distal left ureter with [address] of the brain without contrast dated 06/12/2020 showed chronic changes without acute process. No intracranial hemorrhage identified. Portable chest x-ray dated 06/12/2020 showed mild atelectasis of the right lung base. MRI of the brain dated 06/13/2020 showed small acute lacunar infarct in the left basal ganglia. Carotid Doppler study dated 06/13/2020 showed no hemodynamically significant stenosis. 2D transthoracic echocardiogram dated 06/13/2020 showed ejection fraction of 50% to 55%. Mild mitral and tricuspid regurgitation. HOSPITAL COURSE: The patient was initially admitted after presenting with sepsis with associated acute encephalopathy and questionable associated seizure. The patient underwent general metabolic screening with urinalysis suggestive of infectious process. The patient underwent CT imaging of the abdomen and pelvis showing a distal left ureteral stone, approximately 4 mm. The patient was given aggressive sepsis protocol including IV fluid resuscitation and evaluated by the Urology Service. Urine and blood cultures were positive for Klebsiella species as stated previously, receiving IV Rocephin and vancomycin empirically. The patient underwent a cystoscopy with stone extraction, 06/12/2020. The patient continued on IV fluids and had mild hematuria postoperatively, however, continued to showed no evidence of acute kidney injury. The patient's sepsis improved with IV antibiotic therapy and general supportive care with therapy directed at Klebsiella species. The patient will transition to Levaquin 500 mg daily to complete a 2-week course of antibiotic therapy. The patient was also evaluated due to altered mentation and questionable seizure-like activity at the time of admission, undergoing evaluation by the Neurology Service. MRI imaging did show evidence of a small acute lacunar infarct in the left basal ganglia with recommendations for aspirin 81 mg daily. EEG evaluation was also obtained with pending results at the time of this dictation. The patient clinically improved and was back to baseline mental status and functional status prior to discharge. I have examined the patient at the time of discharge and discussed followup instructions. The patient and verbalized understanding and agreement, ready for discharge on 06/14/2020. DISCHARGE MEDICATIONS: 1. Eliquis 5 mg p.o. at bedtime. 2. Folic acid 1 mg p.o. daily. 3. Lisinopril 5 mg p.o. daily. 4. Gabapentin 200 mg p.o. b.i.d. 5. Prednisone 20 mg p.o. q.a.m. 6. Protonix 30 mg p.o. daily. 7. Vitamin B12 of 1000 mcg p.o. daily. 8. Vitamin C 1000 mg p.o. daily. 9. Enteric-coated aspirin 81 mg p.o. daily. 10. Levaquin 500 mg p.o. daily x14 days. 11. Tramadol 50 mg p.o. q.i.d. p.r.n. 12. Calcium with vitamin D3 one tablet p.o. daily. 13. Lipitor 20 mg p.o. at bedtime. FOLLOWUP: The patient may follow up with Dr. Wesley Crane within 7 days of discharge. The patient will follow up with Dr. Humberto Velez within 2 weeks of discharge. CONDITION ON DISCHARGE: Fair. ACTIVITY: Ad-jovita. DIET: Heart healthy. CODE STATUS: Full. DISPOSITION: Home on 06/14/2020. TIME SPENT: Total time preparing and coordinating discharge, 37 minutes. Job ID: [id number]
== END 2020-06-14 16:24 | disposition home or self-care (01) | DRG 853 ==
LOC: ERS 06:11 → ERHOLD 10:02 → ONC 13:03 → 2SE 06-13 14:05
PROVIDERS: ADMIT Internal Medicine; ATTEND Internal Medicine
PROC: 0TC78ZZ Extirpation of Matter from Left Ureter, Via Natural or Artificial Opening Endoscopic (ICD-10-PCS; principal; 2020-06-12)
PROC: 0T778DZ Dilation of Left Ureter with Intraluminal Device, Via Natural or Artificial Opening Endoscopic (ICD-10-PCS; 2020-06-12)
DX: A41.59 Other Gram-negative sepsis (principal); I63.81 Other cerebral infarction due to occlusion or stenosis of small artery; G93.41 Metabolic encephalopathy; I69.351 Hemiplegia and hemiparesis following cerebral infarction affecting right dominant side; N13.6 Pyonephrosis; R65.20 Severe sepsis without septic shock; R31.9 Hematuria, unspecified; Z20.828 Contact with and (suspected) exposure to other viral communicable diseases; K21.9 Gastro-esophageal reflux disease without esophagitis; M81.0 Age-related osteoporosis without current pathological fracture; E86.0 Dehydration; I10 Essential (primary) hypertension; T40.425A Adverse effect of tramadol, initial encounter; G40.909 Epilepsy, unspecified, not intractable, without status epilepticus; R29.718 NIHSS score 18; I69.320 Aphasia following cerebral infarction; Z86.718 Personal history of other venous thrombosis and embolism; Z79.899 Other long term (current) drug therapy; Z79.01 Long term (current) use of anticoagulants; Z79.890 Hormone replacement therapy
CPT/HCPCS: 36415; 70450; 70551; 71045; 74177; 80048; 80053; 80061; 80202; 81003; 81015; 82365; 83605; 83735; 84145; 85025; 85610; 85730; 87040; 87077; 87086; 87149; 87186; 88300; 93005; 93306; 93880; 95712; 95819; 95957; J0692; J0696; J2270; J2704; J2765; J3010; J3370; J3490; J7050; J7512; Q9967; U0002